=== PATIENT | female | born 1975 | race Caucasian/White ===

== ENCOUNTER → 2022-08-24 10:11 | Outpatient (CLI) | payer OTHER, MEDICAID, SELFPAY ==
--- NOTE | 2022-08-24 10:11 | DI.MG.S_ITS ---
BILATERAL DIGITAL SCREENING MAMMOGRAM 3D/2D WITH CAD: 08/24/2022 CLINICAL: Baseline exam. Routine screening. Family history of breast cancer. No prior exams were available for comparison. Both breasts are heterogeneously dense, which may obscure small masses (category c / 51-75% glandular tissue). Current study was also evaluated with a Computer Aided Detection (CAD) system. There are grouped heterogeneous calcifications in the right breast at 12 o'clock posterior depth. No other significant masses, calcifications, or other findings are seen in either breast. IMPRESSION: INCOMPLETE: NEEDS ADDITIONAL IMAGING EVALUATION The grouped heterogeneous calcifications in the right breast are indeterminate. Diagnostic mammogram for additional views to include mediolateral and spot magnification views is recommended. This exam was interpreted at Station ID: [id number]. NOTE: For mammograms, a report in lay terms will be sent to the patient. Approximately 15% of breast malignancies will not be visualized mammographically. In the management of a palpable breast mass, a negative mammogram must not discourage biopsy of a clinically suspicious lesion. Electronically Signed By: Nilo Portillo M.D. at/:08/24/2022 18:50:11 letter sent: Additional Imaging Needed ACR BI-RADS Category 0: Incomplete 3340F
--- NOTE | 2022-08-24 10:11 | DI.US.S_ITS ---
PROCEDURE: US PELVIC COMPLETE INDICATIONS: PAIN TECHNIQUE: Real-time scanning was performed of the pelvic organs, with image documentation. Additional endovaginal scanning was necessary due to incomplete visualization of the adnexal and endometrial structures by transabdominal scanning. COMPARISON: None. FINDINGS: Uterus: 8.1 x 3.5 x 5.3 cm. Endometrium measures 2 mm. Ovaries: Right ovary measures 4.3 x 3.6 x 2.9 cm, for a volume of 24 cc. A complex cyst measures 3.1 x 2.8 x 2.5 cm. Left ovary is not well seen. Color and spectral flows are documented in the right ovary. Other: No pathologic free fluid. IMPRESSION: A complex cystic lesion is seen in the right ovary measuring up to 3.1 cm, with imaging appearance suggestive of hemorrhagic cyst. Consider follow-up imaging in 6-8 weeks given patient is symptomatic to ensure this resolves. Cystic neoplasm or endometrioma is considered less likely. Reimaging could be obtained sooner if symptoms worsen. We strive to produce accurate, complete, and clear reports of imaging services. To assist us in improving patient care, this report was composed using standard report templates and voice recognition software. Therefore, it may contain abnormal punctuation, insertions and/or omissions. Occasional wrong-word or sound-alike substitutions may occur. Though we review the report and make efforts to correct it, we do recommend that the report be read carefully in proper context to recognize any text inaccuracies. Dictated by: Levar Ackerman M.D. on 08/24/2022 at 12:20 Approved by: Levar Ackerman M.D. on 08/24/2022 at 12:23
== END ==
PROVIDERS: PCP Nurse Practitioner Family; Referring Provider Physician Assistant Medical; Visit Provider Physician Assistant Medical
DX: Z12.31 Encounter for screening mammogram for malignant neoplasm of breast (principal); R10.2 Pelvic and perineal pain; Z80.3 Family history of malignant neoplasm of breast; N83.291 Other ovarian cyst, right side
CPT/HCPCS: 76830; 76856; 77063; 77067; 93976

== ENCOUNTER → 2022-10-11 09:32 | Outpatient (CLI) | payer OTHER, MEDICAID, SELFPAY ==
--- NOTE | 2022-10-11 | DI.MG.S_ITS ---
UNILATERAL RIGHT DIGITAL DIAGNOSTIC MAMMOGRAM 3D/2D WITH ADDITIONAL VIEWS: 10/11/2022 CLINICAL: Additional evaluation requested from prior study. Comparison is made to exam dated: 08/24/2022 mammogram - [facility]. The right breast is heterogeneously dense, which may obscure small masses (category c / 51-75% glandular tissue). There are grouped coarse heterogeneous calcifications in the right breast at 12 o'clock posterior depth. No other significant masses or calcifications are seen in the breast. IMPRESSION: SUSPICIOUS OF MALIGNANCY The grouped coarse heterogeneous calcifications in the right breast are at a low suspicion for malignancy. Tomographic-guided biopsy is recommended. This exam was interpreted at Station ID: [id number]. NOTE: For mammograms, a report in lay terms will be sent to the patient. Approximately 15% of breast malignancies will not be visualized mammographically. In the management of a palpable breast mass, a negative mammogram must not discourage biopsy of a clinically suspicious lesion. Electronically Signed By: Levar Ackerman M.D. lc/:10/11/2022 10:12:42 letter sent: Biopsy Required ACR BI-RADS Category 4a: Suspicious abnormality - low suspicion for malignancy 3344F
--- NOTE | 2022-10-11 | DI.US.S_ITS ---
PROCEDURE: US PELVIC COMPLETE INDICATIONS: ovarian cyst, right side TECHNIQUE: Real-time scanning was performed of the pelvic organs, with image documentation. Additional endovaginal scanning was necessary due to incomplete visualization of the adnexal and endometrial structures by transabdominal scanning. COMPARISON: [facility], US, US PELVIC COMPLETE, 08/24/2022, 10:24. FINDINGS: Uterus: Uterus is anteverted and normal in size at 8.5 x 3.0 x 5.1 cm. The myometrium is homogeneous. The endometrium measures 1.6 mm combined thickness. Ovaries: The right ovary measures 2.9 x 1.1 x 1.3 cm, with a calculated ovarian volume of 2.2 cc. The left ovary measures 2.8 x 1.8 x 2.3 cm, with a calculated ovarian volume of 6.0 cc. The ovaries have a normal sonographic appearance. Less than 12 follicles can be seen in each ovary. No adnexal masses are seen. There is a small right follicular cyst and a left corpus luteal cyst. Other: No pathologic free abdominal or pelvic fluid. IMPRESSION: Previously visualized right ovarian cyst has resolved and likely represented a hemorrhagic cyst. Otherwise unremarkable pelvic ultrasound. We strive to produce accurate, complete, and clear reports of imaging services. To assist us in improving patient care, this report was composed using standard report templates and voice recognition software. Therefore, it may contain abnormal punctuation, insertions and/or omissions. Occasional wrong-word or sound-alike substitutions may occur. Though we review the report and make efforts to correct it, we do recommend that the report be read carefully in proper context to recognize any text inaccuracies. Dictated by: Khushboo Workman M.D. on 10/11/2022 at 12:27 Approved by: Khushboo Workman M.D. on 10/11/2022 at 12:29
== END ==
PROVIDERS: Family Provider Nurse Practitioner Family; PCP Nurse Practitioner Family; Referring Provider Physician Assistant Medical; Visit Provider Physician Assistant Medical
DX: N83.01 Follicular cyst of right ovary (principal); R92.8 Other abnormal and inconclusive findings on diagnostic imaging of breast; R92.1 Mammographic calcification found on diagnostic imaging of breast; N83.12 Corpus luteum cyst of left ovary
CPT/HCPCS: 76856; 77065; G0279

== ENCOUNTER 2023-01-06 13:30 | Outpatient (RCR) | payer OTHER, MEDICAID, SELFPAY ==
--- NOTE | 2022-11-02 17:18 | PT.OIE ---
Current Diagnoses Sprain of anterior cruciate ligament of right knee, subsequent encounter (11/02/22) Past Medical History (Last Updated 06/03/22 @ 18:58 by Jossy Reaves) Abnormal Pap smear of cervix (~1998) Chicken pox (~1983) Chronic back pain (~1997) Foot pain (~1991) Irregular menstrual cycle Peripheral neuropathy (~2013) Precancerous skin lesion (~1999) Past Surgical History (Last Updated 06/03/22 @ 18:58 by Jossy Reaves) Anesthesia Surgical procedure planned (~2017) Visit Care Team Role Provider Type SKIP Dubon Attending Provider Non-Staff Family Provider Primary Care Provider Referring Provider Specialty: Medical Address: [address] [place] [address], [facility] Email: Physical Therapy Initial Evaluation PT-OP-A Visit Information Start: 11/01/22 18:02 Freq: Status: Active Protocol: Document 11/02/22 15:19 [facility] (Rec: 11/02/22 16:31 [facility] [id number]) Out-Patient Physical Therapy Visit Information Visit Information Visit Type Initial Evaluation Visit Start Time 15:22 Visit Stop Time 16:20 Total Visit Minutes 58 Visit Number 1 Number of MEDICAL STAFF DIRECTOR Visits 0 PT-OP-B Current Condition Start: 11/01/22 18:02 Freq: Status: Active Protocol: Document 11/02/22 15:19 [facility] (Rec: 11/02/22 16:31 [facility] [id number]) Current Condition History of Current Condition History of Current Condition Pt had a skiing accdient and heard a snap in her knee. Her ski didn't pop off. This was Sep 08. Pt does a lot of modern dance. She was seeing PT for 3 weeks on [place] but is staying on [place] until Mar. Ortho MD did suggest surgery but she has a lot of manual labor like dismantle a garage and paint a house. Her house on [place] is uneven ground everywhere and that is difficult. Pt has a dance performance on December 04. She idd perform about 1 month ago and improvised. She is avoiding leaping and spins. 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 Pt reports knee is not giving out on her recently but has done it on uneven ground. its been 1.5 months ago. She is careful how she moves though. Pt reports tearing R HS as a teen . Prior Treatments and Tests Got a MRI a few weeks ago saying:R knee near complete ruputre of ACL, Grade 2 MCL sprain, lat meniscal post horn tear, multifocal bone bruising and post rim impaction fx of the lat plateau, patellofemoral chrondromalacia, small knee effusion or hemarthrosis. Treatment Goals Patient/Caregiver Goals Be dancing more, be able to bend her knee & have ext, be able to be on unstable surfaces PT-OP-F Manual Assessment Start: 11/01/22 18:02 Freq: Status: Active Protocol: Document 11/02/22 15:19 [facility] (Rec: 11/02/22 16:31 [facility] [id number]) Manual Assessments Soft Tissue Assessment Soft Tissue Mobility Assessment significant tightness and restriction in HS, quad adn at patellar tendon; swelling most notable most knee Joint Mobility Assessment Joint Mobility Assessment dec fib mobility PT-OP-G Mobility & Gait Start: 11/01/22 18:02 Freq: Status: Active Protocol: Document 11/02/22 15:19 [facility] (Rec: 11/02/22 16:31 [facility] [id number]) OP Gait Assessment Comments Gait Comments dec push off into RLE. PT-OP-K Range of Motion Start: 11/01/22 18:02 Freq: Status: Active Protocol: Document 11/02/22 15:19 [facility] (Rec: 11/02/22 16:31 [facility] [id number]) Knee Goniometric Range of Motion Knee Right Flexion Active (degrees) 77 Extension Active (degrees) 5 Comments lacking to neutral in ext; pain w/flex Left Flexion Active (degrees) 138 Hyper-Extension Active 4 PT-OP-L Special Tests Start: 11/01/22 18:02 Freq: Status: Active Protocol: Document 11/02/22 15:19 [facility] (Rec: 11/02/22 16:31 [facility] [id number]) Special Tests Knee Special Tests Straight Leg Raise Comments L 104 R 95 Km Test Results quad tightness R PT-OP-M Strength Start: 11/01/22 18:02 Freq: Status: Active Protocol: Document 11/02/22 15:19 [facility] (Rec: 11/02/22 16:31 [facility] [id number]) Hip Strength Hip Manual Muscle Testing Right Flexion (L2) 4- Good- Extension (S1) 5 Normal Abduction 4 Good Adduction 4+ Good+ External Rotation 3+ Fair+ Internal Rotation 4- Good- Left Flexion (L2) 5 Normal Extension (S1) 5 Normal Abduction 5 Normal Adduction 5 Normal External Rotation 5 Normal Internal Rotation 5 Normal Knee Strength Knee Manual Muscle Testing Right Flexion (S2) 4- Good- Extension (L3) 4 Good Left Flexion (S2) 5 Normal Extension (L3) 5 Normal Ankle/Foot Strength Ankle and Foot Manual Muscle Testing Right Dorsiflexion (L4) 5 Normal Left Dorsiflexion (L4) 5 Normal PT-OP-T Assessment and Plan Start: 11/01/22 18:02 Freq: Status: Active Protocol: Document 11/02/22 15:19 [facility] (Rec: 11/02/22 16:31 [facility] [id number]) Physical Therapy Assessment Rehab Potential Rehabilitation Potential Good Evaluation Complexity Number of Personal Factors/Comorbidities 3 or More Number of Body Systems Impaired 4 or More Clinical Presentation at Evaluation Evolving Impairments Impairments Activity Tolerance,Balance, Functional Activities, Functional Mobility,Gait,Pain, Posture,ROM,Soft Tissue Mobility,Strength Other Concerns Barriers to Rehabilitation pt has limit of only 12 visits per year w/insurance and pt is likely to get surgery. Pt would benefit from 2x/week but will have to be seen 1x/week or every other week d/t restriction of visits and that pt will require further PT after recommended (by Orthopedic) surgery Goals activities Short Term Goal (STG) Pt will be able to return to biking (on stationary bike- full range), ellipical full range and walks w/o inc pain in order to improve pt strength and stabiltiy. STG Duration 12/02/22 Tumor Registrar Goal (LTG) Pt will be able to squat down to the ground as need to picking supervisor objects and ffor movement requried of dance w/o inc pain LTG Duration 01/21/23 stairs Care Home Goal (LTG) pt will be able to reciprocate up/down stairs w/o compensations or R knee pain LTG Duration 01/25/23 ROm Short Term Goal (STG) Pt will improve ROM to 0-100 deg STG Duration 12/13/22 Care Home Goal (LTG) Pt will have 0-120 deg AROM of R knee and at least 104 SLR active in order to improve pt ability to do stairs, and activities required of dancing LTG Duration 01/25/23 Assessment Summary Assessment Pt presents w/R knee near complete ruputre of ACL, Grade 2 MCL sprain, lat meniscal post horn tear, multifocal bone bruising and post rim impaction fx of the lat plateau, patellofemoral chrondromalacia, small knee effusion or hemarthrosis (per MRI report). Pt has signficantly limited ROM and is unable to bend knee or fully straighten d/t pain and signficant quad weakness w/dec VMO engagment. She was recommended surgery by ortho who only mentioned the ACL tear and sprain of MCL but is unable to get it immediately d /t some activities she has to complete on her house and boyfriend's house in a timely manner. She would benefit from gaining strength and ROM prior to surgery and improve overall stability at this time . Physical Therapy Plan Frequency and Duration Frequency of Treatment 1x/Week Duration of treatment (weeks) 12 Plan of Care Start Date 11/02/22 Plan of Care End Date 01/25/23 Therapeutic Interventions Therapeutic Interventions Balance Training,Gait Training ,Home Exercise Program,Joint Mobilizations,Manual Therapy, Neuromuscular Re-education, Patient/Caregiver Education, Self-Care/Home Management,Soft Tissue Mobilization,Taping, Therapeutic Activities, Therapeutic Exercises Modalities Cold Pack/Ice Massage,Electric Stimulation,Hot Packs, Infrared Therapy,Iontophoresis ,Ultrasound Next Visit Focus/Plan Next Note Type Treatment Note Next Visit Plan ask if pt has any questions re : HEP, Advance exercises as able. Manual: circumfrential mobilization to femur and tibia, tibfib, tibfem mods very gentle, Patellofemoral mobs, STM to patellar tendon, plunger to ant knee
--- NOTE | 2022-11-02 17:18 | PT.OPPOC ---
Physical, Occupational & Speech Therapy At [facility] Current Diagnoses Sprain of anterior cruciate ligament of right knee, subsequent encounter (11/02/22) Visit Care Team Role Provider Type SKIP Dubon Attending Provider Non-Staff Family Provider Primary Care Provider Referring Provider Specialty: Medical Address: [address] [place] [address], [id number] Email: Plan Of Care PT-OP-T Assessment and Plan Start: 11/01/22 18:02 Freq: Status: Active Protocol: Document 11/02/22 15:19 [facility] (Rec: 11/02/22 16:31 [facility] [id number]) Physical Therapy Assessment Rehab Potential Rehabilitation Potential Good Evaluation Complexity Number of Personal Factors/Comorbidities 3 or More Number of Body Systems Impaired 4 or More Clinical Presentation at Evaluation Evolving Impairments Impairments Activity Tolerance,Balance, Functional Activities, Functional Mobility,Gait,Pain, Posture,ROM,Soft Tissue Mobility,Strength Other Concerns Barriers to Rehabilitation pt has limit of only 12 visits per year w/insurance and pt is likely to get surgery. Pt would benefit from 2x/week but will have to be seen 1x/week or every other week d/t restriction of visits and that pt will require further PT after recommended (by Orthopedic) surgery Goals activities Short Term Goal (STG) Pt will be able to return to biking (on stationary bike- full range), ellipical full range and walks w/o inc pain in order to improve pt strength and stabiltiy. STG Duration 12/02/22 Electrostatic Painter Goal (LTG) Pt will be able to squat down to the ground as need to hand picker objects and ffor movement requried of dance w/o inc pain LTG Duration 01/21/23 stairs Electrostatic Painter Goal (LTG) pt will be able to reciprocate up/down stairs w/o compensations or R knee pain LTG Duration 01/25/23 ROm Short Term Goal (STG) Pt will improve ROM to 0-100 deg STG Duration 12/13/22 Long-Term Goal (LTG) Pt will have 0-120 deg AROM of R knee and at least 104 SLR active in order to improve pt ability to do stairs, and activities required of dancing LTG Duration 01/25/23 Assessment Summary Assessment Pt presents w/R knee near complete ruputre of ACL, Grade 2 MCL sprain, lat meniscal post horn tear, multifocal bone bruising and post rim impaction fx of the lat plateau, patellofemoral chrondromalacia, small knee effusion or hemarthrosis (per MRI report). Pt has signficantly limited ROM and is unable to bend knee or fully straighten d/t pain and signficant quad weakness w/dec VMO engagment. She was recommended surgery by ortho who only mentioned the ACL tear and sprain of MCL but is unable to get it immediately d /t some activities she has to complete on her house and boyfriend's house in a timely manner. She would benefit from gaining strength and ROM prior to surgery and improve overall stability at this time . Physical Therapy Plan Frequency and Duration Frequency of Treatment 1x/Week Duration of treatment (weeks) 12 Plan of Care Start Date 11/02/22 Plan of Care End Date 01/25/23 Therapeutic Interventions Therapeutic Interventions Balance Training,Gait Training ,Home Exercise Program,Joint Mobilizations,Manual Therapy, Neuromuscular Re-education, Patient/Caregiver Education, Self-Care/Home Management,Soft Tissue Mobilization,Taping, Therapeutic Activities, Therapeutic Exercises Modalities Cold Pack/Ice Massage,Electric Stimulation,Hot Packs, Infrared Therapy,Iontophoresis ,Ultrasound Next Visit Focus/Plan Next Note Type Treatment Note Next Visit Plan ask if pt has any questions re : HEP, Advance exercises as able. Manual: circumfrential mobilization to femur and tibia, tibfib, tibfem mods very gentle, Patellofemoral mobs, STM to patellar tendon, plunger to ant knee Plan of Care Dates Plan of Care Start Date 11/02/22 Plan of Care End Date 01/25/23 Electronically Signed by: Stephanie Noel, PT 11/02/22 2355 If you are in agreement with this Plan of Care, please return a signed and dated copy. I have reviewed this Plan of Care and certify that the skilled therapy services above are required to meet the patient?s needs. Physician Signature Date Printed Name and Credentials Clinical Instructor Signature Printed Name and Credentials
--- NOTE | 2022-11-02 18:18 | PT.OIE ---
Current Diagnoses Sprain of anterior cruciate ligament of right knee, subsequent encounter (11/02/22) Past Medical History (Last Updated 06/03/22 @ 18:58 by Jossy Reaves) Abnormal Pap smear of cervix (~1998) Chicken pox (~1983) Chronic back pain (~1997) Foot pain (~1991) Irregular menstrual cycle Peripheral neuropathy (~2013) Precancerous skin lesion (~1999) Past Surgical History (Last Updated 06/03/22 @ 18:58 by Jossy Reaves) Anesthesia Surgical procedure planned (~2017) Visit Care Team Role Provider Type SKIP [place] Attending Provider Non-Staff Family Provider Primary Care Provider Referring Provider Specialty: Medical Address: [address] [place] [address], [facility] Email: Physical Therapy Initial Evaluation PT-OP-A Visit Information Start: 11/01/22 18:02 Freq: Status: Active Protocol: Document 11/02/22 15:19 [facility] (Rec: 11/02/22 16:31 [facility] [id number]) Out-Patient Physical Therapy Visit Information Visit Information Visit Type Initial Evaluation Visit Start Time 15:22 Visit Stop Time 16:20 Total Visit Minutes 58 Visit Number 1 Number of GAME BREEDING FARM MANAGER Visits 0 PT-OP-B Current Condition Start: 11/01/22 18:02 Freq: Status: Active Protocol: Document 11/02/22 15:19 [facility] (Rec: 11/02/22 16:31 [facility] [id number]) Current Condition History of Current Condition History of Current Condition Pt had a skiing accdient and heard a snap in her knee. Her ski didn't pop off. This was Sep 08. Pt does a lot of modern dance. She was seeing PT for 3 weeks on [place] but is staying on [place] until Mar. Ortho MD did suggest surgery but she has a lot of manual labor like dismantle a garage and paint a house. Her house on [place] is uneven ground everywhere and that is difficult. Pt has a dance performance on December 04. She idd perform about 1 month ago and improvised. She is avoiding leaping and spins. 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 Pt reports knee is not giving out on her recently but has done it on uneven ground. its been 1.5 months ago. She is careful how she moves though. Pt reports tearing R HS as a teen . Prior Treatments and Tests Got a MRI a few weeks ago saying:R knee near complete ruputre of ACL, Grade 2 MCL sprain, lat meniscal post horn tear, multifocal bone bruising and post rim impaction fx of the lat plateau, patellofemoral chrondromalacia, small knee effusion or hemarthrosis. Treatment Goals Patient/Caregiver Goals Be dancing more, be able to bend her knee & have ext, be able to be on unstable surfaces PT-OP-C Subjective Start: 11/01/22 18:02 Freq: Status: Active Protocol: Document 11/02/22 15:19 [facility] (Rec: 11/02/22 18:18 [facility] [id number]) Patient Questionnaires Lower Extremity Functional Scale LEFS Score 45/80 PT-OP-F Manual Assessment Start: 11/01/22 18:02 Freq: Status: Active Protocol: Document 11/02/22 15:19 [facility] (Rec: 11/02/22 16:31 [facility] [id number]) Manual Assessments Soft Tissue Assessment Soft Tissue Mobility Assessment significant tightness and restriction in HS, quad adn at patellar tendon; swelling most notable most knee Joint Mobility Assessment Joint Mobility Assessment dec fib mobility PT-OP-G Mobility & Gait Start: 11/01/22 18:02 Freq: Status: Active Protocol: Document 11/02/22 15:19 [facility] (Rec: 11/02/22 16:31 [facility] [id number]) OP Gait Assessment Comments Gait Comments dec push off into RLE. PT-OP-K Range of Motion Start: 11/01/22 18:02 Freq: Status: Active Protocol: Document 11/02/22 15:19 [facility] (Rec: 11/02/22 16:31 [facility] [id number]) Knee Goniometric Range of Motion Knee Right Flexion Active (degrees) 77 Extension Active (degrees) 5 Comments lacking to neutral in ext; pain w/flex Left Flexion Active (degrees) 138 Hyper-Extension Active 4 PT-OP-L Special Tests Start: 11/01/22 18:02 Freq: Status: Active Protocol: Document 11/02/22 15:19 [facility] (Rec: 11/02/22 16:31 [facility] [id number]) Special Tests Knee Special Tests Straight Leg Raise Comments L 104 R 95 Km Test Results quad tightness R PT-OP-M Strength Start: 11/01/22 18:02 Freq: Status: Active Protocol: Document 11/02/22 15:19 [facility] (Rec: 11/02/22 16:31 [facility] [id number]) Hip Strength Hip Manual Muscle Testing Right Flexion (L2) 4- Good- Extension (S1) 5 Normal Abduction 4 Good Adduction 4+ Good+ External Rotation 3+ Fair+ Internal Rotation 4- Good- Left Flexion (L2) 5 Normal Extension (S1) 5 Normal Abduction 5 Normal Adduction 5 Normal External Rotation 5 Normal Internal Rotation 5 Normal Knee Strength Knee Manual Muscle Testing Right Flexion (S2) 4- Good- Extension (L3) 4 Good Left Flexion (S2) 5 Normal Extension (L3) 5 Normal Ankle/Foot Strength Ankle and Foot Manual Muscle Testing Right Dorsiflexion (L4) 5 Normal Left Dorsiflexion (L4) 5 Normal PT-OP-Q Treatments Start: 11/01/22 18:02 Freq: Status: Active Protocol: Document 11/02/22 15:19 [facility] (Rec: 11/02/22 17:20 [facility] [id number]) Therapeutic Exercises Supine Exercises stretch Supine Exercise Name km test Side right Reps/Minutes 1 min heel slide Side right Reps/Minutes 2x w/5 APs ea Comments comfortable range Sitting Exercises LAQ Sitting Exercise Name w/facilitation w/pressure med to VMO Side right Reps/Minutes [id number] flex Sitting Exercise Name flex w/fwd scoot Side right Reps/Minutes 10 secx6 PT-OP-T Assessment and Plan Start: 11/01/22 18:02 Freq: Status: Active Protocol: Document 11/02/22 15:19 [facility] (Rec: 11/02/22 16:31 [facility] [id number]) Physical Therapy Assessment Rehab Potential Rehabilitation Potential Good Evaluation Complexity Number of Personal Factors/Comorbidities 3 or More Number of Body Systems Impaired 4 or More Clinical Presentation at Evaluation Evolving Impairments Impairments Activity Tolerance,Balance, Functional Activities, Functional Mobility,Gait,Pain, Posture,ROM,Soft Tissue Mobility,Strength Other Concerns Barriers to Rehabilitation pt has limit of only 12 visits per year w/insurance and pt is likely to get surgery. Pt would benefit from 2x/week but will have to be seen 1x/week or every other week d/t restriction of visits and that pt will require further PT after recommended (by Orthopedic) surgery Goals activities Short Term Goal (STG) Pt will be able to return to biking (on stationary bike- full range), ellipical full range and walks w/o inc pain in order to improve pt strength and stabiltiy. STG Duration 12/02/22 Shelter Goal (LTG) Pt will be able to squat down to the ground as need to pickling solution maker objects and ffor movement requried of dance w/o inc pain LTG Duration 01/21/23 stairs Shelter Goal (LTG) pt will be able to reciprocate up/down stairs w/o compensations or R knee pain LTG Duration 01/25/23 ROm Short Term Goal (STG) Pt will improve ROM to 0-100 deg STG Duration 12/13/22 Solar Energy Specialist Goal (LTG) Pt will have 0-120 deg AROM of R knee and at least 104 SLR active in order to improve pt ability to do stairs, and activities required of dancing LTG Duration 01/25/23 Assessment Summary Assessment Pt presents w/R knee near complete ruputre of ACL, Grade 2 MCL sprain, lat meniscal post horn tear, multifocal bone bruising and post rim impaction fx of the lat plateau, patellofemoral chrondromalacia, small knee effusion or hemarthrosis (per MRI report). Pt has signficantly limited ROM and is unable to bend knee or fully straighten d/t pain and signficant quad weakness w/dec VMO engagment. She was recommended surgery by ortho who only mentioned the ACL tear and sprain of MCL but is unable to get it immediately d /t some activities she has to complete on her house and boyfriend's house in a timely manner. She would benefit from gaining strength and ROM prior to surgery and improve overall stability at this time . Physical Therapy Plan Frequency and Duration Frequency of Treatment 1x/Week Duration of treatment (weeks) 12 Plan of Care Start Date 11/02/22 Plan of Care End Date 01/25/23 Therapeutic Interventions Therapeutic Interventions Balance Training,Gait Training ,Home Exercise Program,Joint Mobilizations,Manual Therapy, Neuromuscular Re-education, Patient/Caregiver Education, Self-Care/Home Management,Soft Tissue Mobilization,Taping, Therapeutic Activities, Therapeutic Exercises Modalities Cold Pack/Ice Massage,Electric Stimulation,Hot Packs, Infrared Therapy,Iontophoresis ,Ultrasound Next Visit Focus/Plan Next Note Type Treatment Note Next Visit Plan ask if pt has any questions re : HEP, Advance exercises as able. Manual: circumfrential mobilization to femur and tibia, tibfib, tibfem mods very gentle, Patellofemoral mobs, STM to patellar tendon, plunger to ant knee
--- NOTE | 2022-11-15 10:30 | PT.OTN ---
Current Diagnoses Sprain of anterior cruciate ligament of right knee, subsequent encounter (11/15/22) Physical Therapy Treatment Note PT-OP-A Visit Information Start: 11/01/22 18:02 Freq: Status: Active Protocol: Document 11/15/22 09:50 [facility] (Rec: 11/15/22 10:37 [facility] [id number]) Out-Patient Physical Therapy Visit Information Visit Information Visit Type Treatment Note Visit Note GAVIN Cerna provided manual assist and supported instruction on self application at home while under direct supervision and instruction of SORTER LUMBER STRAIGHTENER Rolando with permission of pt. Visit Start Time 09:50 Visit Stop Time 10:30 Total Visit Minutes 40 Visit Number 2 Number of SORTER LUMBER STRAIGHTENER Visits 1 PT-OP-B Current Condition Start: 11/01/22 18:02 Freq: Status: Active Protocol: Document 11/02/22 15:19 [facility] (Rec: 11/02/22 16:31 [facility] [id number]) Current Condition History of Current Condition History of Current Condition Pt had a skiing accdient and heard a snap in her knee. Her ski didn't pop off. This was Sep 08. Pt does a lot of modern dance. She was seeing PT for 3 weeks on [address] but is staying on [place] until Mar. Ortho MD did suggest surgery but she has a lot of manual labor like dismantle a garage and paint a house. Her house [place] [address] is uneven ground everywhere and that is difficult. Pt has a dance performance on December 04. She idd perform about 1 month ago and improvised. She is avoiding leaping and spins. 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 Pt reports knee is not giving out on her recently but has done it on uneven ground. its been 1.5 months ago. She is careful how she moves though. Pt reports tearing R HS as a teen . Prior Treatments and Tests Got a MRI a few weeks ago saying:R knee near complete ruputre of ACL, Grade 2 MCL sprain, lat meniscal post horn tear, multifocal bone bruising and post rim impaction fx of the lat plateau, patellofemoral chrondromalacia, small knee effusion or hemarthrosis. Treatment Goals Patient/Caregiver Goals Be dancing more, be able to bend her knee & have ext, be able to be on unstable surfaces PT-OP-C Subjective Start: 11/01/22 18:02 Freq: Status: Active Protocol: Document 11/15/22 09:50 [facility] (Rec: 11/15/22 10:37 [facility] [id number]) OP-PT Subjective Patient Comments Patient Comments Pt reports has been on vacation and tried to be compliant with HEP given in previous PT on [facility]. PT-OP-F Manual Assessment Start: 11/01/22 18:02 Freq: Status: Active Protocol: Document 11/02/22 15:19 [facility] (Rec: 11/02/22 16:31 [facility] [id number]) Manual Assessments Soft Tissue Assessment Soft Tissue Mobility Assessment significant tightness and restriction in HS, quad adn at patellar tendon; swelling most notable most knee Joint Mobility Assessment Joint Mobility Assessment dec fib mobility PT-OP-G Mobility & Gait Start: 11/01/22 18:02 Freq: Status: Active Protocol: Document 11/02/22 15:19 [facility] (Rec: 11/02/22 16:31 [facility] [id number]) OP Gait Assessment Comments Gait Comments dec push off into RLE. PT-OP-K Range of Motion Start: 11/01/22 18:02 Freq: Status: Active Protocol: Document 11/02/22 15:19 [facility] (Rec: 11/02/22 16:31 [facility] [id number]) Knee Goniometric Range of Motion Knee Right Flexion Active (degrees) 77 Extension Active (degrees) 5 Comments lacking to neutral in ext; pain w/flex Left Flexion Active (degrees) 138 Hyper-Extension Active 4 PT-OP-L Special Tests Start: 11/01/22 18:02 Freq: Status: Active Protocol: Document 11/02/22 15:19 [facility] (Rec: 11/02/22 16:31 [facility] [id number]) Special Tests Knee Special Tests Straight Leg Raise Comments L 104 R 95 Km Test Results quad tightness R PT-OP-M Strength Start: 11/01/22 18:02 Freq: Status: Active Protocol: Document 11/02/22 15:19 [facility] (Rec: 11/02/22 16:31 [facility] [id number]) Hip Strength Hip Manual Muscle Testing Right Flexion (L2) 4- Good- Extension (S1) 5 Normal Abduction 4 Good Adduction 4+ Good+ External Rotation 3+ Fair+ Internal Rotation 4- Good- Left Flexion (L2) 5 Normal Extension (S1) 5 Normal Abduction 5 Normal Adduction 5 Normal External Rotation 5 Normal Internal Rotation 5 Normal Knee Strength Knee Manual Muscle Testing Right Flexion (S2) 4- Good- Extension (L3) 4 Good Left Flexion (S2) 5 Normal Extension (L3) 5 Normal Ankle/Foot Strength Ankle and Foot Manual Muscle Testing Right Dorsiflexion (L4) 5 Normal Left Dorsiflexion (L4) 5 Normal PT-OP-Q Treatments Start: 11/01/22 18:02 Freq: Status: Active Protocol: Document 11/15/22 09:50 [facility] (Rec: 11/15/22 10:37 [facility] [id number]) Therapeutic Exercises Supine Exercises stretch Supine Exercise Name km stretch Side right Reps/Minutes 4 Comments perpendicular to EO table, states does at gym due to bed to low heel slide Side right Resistance 55cm Tball w/ strap Reps/Minutes x5 reps sustained hold Comments improved ROM post manual Other Exercises self STMs Other Exercise Name rolling pin, ball: quad, ITB, calf, peroneals, Tib Anterior Side right Resistance manual and understanding how to apply self. Comments good feedback response, increase Manual Therapy Treatment Soft Tissue Mobilization R leg Body Location R quad, ITB, peroneals, Tib Anterior Mobilization Type Instrument Assisted,Myofascial Release,Rolling,Strumming, Sustained Pressure,Other Intensity/Depth Moderate Body Position Sidelying Comments manual and use of cupping, sustained pressure with FM ankle ROM Ed for self application Joint Mobilizations R knee Joint tibfib prox and distal, tib femoral, patellofemoral Direction AP, PA, circumferencial gentle med/ lateral rotation Grade II Body Position Hooklying Comments Good feedback response PT-OP-T Assessment and Plan Start: 11/01/22 18:02 Freq: Status: Active Protocol: Document 11/15/22 09:50 [facility] (Rec: 11/15/22 10:37 [facility] [id number]) Physical Therapy Assessment Goals activities Short Term Goal (STG) Pt will be able to return to biking (on stationary bike- full range), ellipical full range and walks w/o inc pain in order to improve pt strength and stabiltiy. STG Duration 12/02/22 Short Order Cook Goal (LTG) Pt will be able to squat down to the ground as need to picked edge sewing machine operator objects and ffor movement requried of dance w/o inc pain LTG Duration 01/21/23 stairs [facility] Goal (LTG) pt will be able to reciprocate up/down stairs w/o compensations or R knee pain LTG Duration 01/25/23 ROm Short Term Goal (STG) Pt will improve ROM to 0-100 deg STG Duration 12/13/22 [facility] Goal (LTG) Pt will have 0-120 deg AROM of R knee and at least 104 SLR active in order to improve pt ability to do stairs, and activities required of dancing LTG Duration 01/25/23 Assessment Summary Assessment Pt good response to manual, decreased anteromedial patellar tendon discomfort and more stretch B and into distal quad with LE supported on tball and use of yoga strap for AAROM Knee flexion. Physical Therapy Plan Frequency and Duration Frequency of Treatment 1x/Week Duration of treatment (weeks) 12 Plan of Care Start Date 11/02/22 Plan of Care End Date 01/25/23 Therapeutic Interventions Therapeutic Interventions Balance Training,Gait Training ,Home Exercise Program,Joint Mobilizations,Manual Therapy, Neuromuscular Re-education, Patient/Caregiver Education, Self-Care/Home Management,Soft Tissue Mobilization,Taping, Therapeutic Activities, Therapeutic Exercises Modalities Cold Pack/Ice Massage,Electric Stimulation,Hot Packs, Infrared Therapy,Iontophoresis ,Ultrasound Next Visit Focus/Plan Next Note Type Treatment Note Next Visit Plan REcheck ROM, use of manual and Tball supported and strap AAROM. POC: ask if pt has any questions re: HEP, Advance exercises as able. Manual: circumfrential mobilization to femur and tibia, tibfib, tibfem mods very gentle, Patellofemoral mobs, STM to patellar tendon, plunger to ant knee
--- NOTE | 2022-11-24 13:00 | PT.OTN ---
Current Diagnoses Sprain of anterior cruciate ligament of right knee, subsequent encounter (11/24/22) Physical Therapy Treatment Note PT-OP-A Visit Information Start: 11/01/22 18:02 Freq: Status: Active Protocol: Document 11/24/22 12:16 SP (Rec: 11/24/22 13:04 SP [id number]) Out-Patient Physical Therapy Visit Information Visit Information Visit Type Treatment Note Visit Note 01/10 (3 appts on [place]) visits allowed *Updated to 1x/wk in POC for extending time visits. Visit Start Time 12:16 Visit Stop Time 13:00 Total Visit Minutes 44 Visit Number 3 Number of SPORTS ADMINISTRATOR Visits 2 PT-OP-B Current Condition Start: 11/01/22 18:02 Freq: Status: Active Protocol: Document 11/02/22 15:19 [facility] (Rec: 11/02/22 16:31 [facility] [id number]) Current Condition History of Current Condition History of Current Condition Pt had a skiing accdient and heard a snap in her knee. Her ski didn't pop off. This was Sep 08. Pt does a lot of modern dance. She was seeing PT for 3 weeks on [place] but is staying on [place] until Mar. Ortho MD did suggest surgery but she has a lot of manual labor like dismantle a garage and paint a house. Her house [place] is uneven ground everywhere and that is difficult. Pt has a dance performance on December 04. She idd perform about 1 month ago and improvised. She is avoiding leaping and spins. 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 Pt reports knee is not giving out on her recently but has done it on uneven ground. its been 1.5 months ago. She is careful how she moves though. Pt reports tearing R HS as a teen . Prior Treatments and Tests Got a MRI a few weeks ago saying:R knee near complete ruputre of ACL, Grade 2 MCL sprain, lat meniscal post horn tear, multifocal bone bruising and post rim impaction fx of the lat plateau, patellofemoral chrondromalacia, small knee effusion or hemarthrosis. Treatment Goals Patient/Caregiver Goals Be dancing more, be able to bend her knee & have ext, be able to be on unstable surfaces PT-OP-C Subjective Start: 11/01/22 18:02 Freq: Status: Active Protocol: Document 11/24/22 12:16 SP (Rec: 11/24/22 13:04 SP [id number]) OP-PT Subjective Patient Comments Patient Comments Pt reported felt great and standing more vertical on RLE at gym. She made full revolutions on bike. Feels less stuck, moving more smoothly DF/PF/ knee flexion/ ext. Using rolling pin/ball for self manual mobililty support. REports Elliptical more normal and gait improving reported. PT-OP-F Manual Assessment Start: 11/01/22 18:02 Freq: Status: Active Protocol: Document 11/02/22 15:19 [facility] (Rec: 11/02/22 16:31 [facility] [id number]) Manual Assessments Soft Tissue Assessment Soft Tissue Mobility Assessment significant tightness and restriction in HS, quad adn at patellar tendon; swelling most notable most knee Joint Mobility Assessment Joint Mobility Assessment dec fib mobility PT-OP-G Mobility & Gait Start: 11/01/22 18:02 Freq: Status: Active Protocol: Document 11/02/22 15:19 [facility] (Rec: 11/02/22 16:31 [facility] [id number]) OP Gait Assessment Comments Gait Comments dec push off into RLE. PT-OP-K Range of Motion Start: 11/01/22 18:02 Freq: Status: Active Protocol: Document 11/24/22 12:16 SP (Rec: 11/24/22 13:04 SP [id number]) Knee Goniometric Range of Motion Knee Right Knee ROM WFL Yes Patient Position Supine Flexion Active (degrees) 110 Flexion Passive (degrees) 113 Extension Active (degrees) 2 Comments R knee AROM: flex: 33 deg gained (110*) ext: 3 deg gained (2*) PT-OP-L Special Tests Start: 11/01/22 18:02 Freq: Status: Active Protocol: Document 11/02/22 15:19 [facility] (Rec: 11/02/22 16:31 [facility] [id number]) Special Tests Knee Special Tests Straight Leg Raise Comments L 104 R 95 Km Test Results quad tightness R PT-OP-M Strength Start: 11/01/22 18:02 Freq: Status: Active Protocol: Document 11/02/22 15:19 [facility] (Rec: 11/02/22 16:31 [facility] [id number]) Hip Strength Hip Manual Muscle Testing Right Flexion (L2) 4- Good- Extension (S1) 5 Normal Abduction 4 Good Adduction 4+ Good+ External Rotation 3+ Fair+ Internal Rotation 4- Good- Left Flexion (L2) 5 Normal Extension (S1) 5 Normal Abduction 5 Normal Adduction 5 Normal External Rotation 5 Normal Internal Rotation 5 Normal Knee Strength Knee Manual Muscle Testing Right Flexion (S2) 4- Good- Extension (L3) 4 Good Left Flexion (S2) 5 Normal Extension (L3) 5 Normal Ankle/Foot Strength Ankle and Foot Manual Muscle Testing Right Dorsiflexion (L4) 5 Normal Left Dorsiflexion (L4) 5 Normal PT-OP-Q Treatments Start: 11/01/22 18:02 Freq: Status: Active Protocol: Document 11/24/22 12:16 SP (Rec: 11/24/22 13:04 SP [id number]) Therapeutic Exercises Supine Exercises stretch Supine Exercise Name km stretch Side right Reps/Minutes 30 Comments perpendicular to EO table, states does at gym due to bed to low Standing Exercises knee/ankle mobility Standing Exercise Name added improved knee flexion post manual pat tendon and Ktaping Comments with manual patellar tendon superior glides Other Exercises self STMs Other Exercise Name rolling pin, ball: quad, ITB, calf, peroneals, Tib Anterior Side right Resistance manual and understanding how to apply self. Comments good feedback response, increase Gait Training Gait Activity stairs Description receiprocal stepping Device Used 0 Level of Assistance S Distance/Duration 4 steps x3 laps Treatment Focus knee/ ankle alignment, R knee ROM and eccentric control Comments good con/eccentric reciprocal stepping, little deccrease stance time RLE no UE support required. Manual Therapy Treatment Soft Tissue Mobilization R leg Body Location R quad, ITB, peroneals, Tib Anterior Mobilization Type Instrument Assisted,Myofascial Release,Rolling,Strumming, Sustained Pressure,Other Intensity/Depth Moderate Body Position Sidelying Comments manual and use of cupping, sustained pressure with FM ankle ROM Ed for self application Joint Mobilizations R knee Joint tibfib prox and distal, tib femoral, patellofemoral Direction AP, PA, circumferencial gentle med/ lateral rotation Grade II Body Position Hooklying Comments Good feedback response Taping K taping Body Location R patella Treatment Focus pat stabilization Type of Tape Kinesio Tape Skin Inspection normal, color texture Comments C med/ lat patella: C tib pateau> distal mid quad. Good feedback more ease ROM post Man and ktaping. Neuro Re-Education Treatment Balance Activities hurdles Details initiated in PT for carryover mechanics knee flex/DF RLE Equipment 3 hurdles Comments slower pacing- improved R knee flexion, DF post manual and support Ktaping. PT-OP-T Assessment and Plan Start: 11/01/22 18:02 Freq: Status: Active Protocol: Document 11/24/22 12:16 SP (Rec: 11/24/22 13:04 SP [id number]) Physical Therapy Assessment Goals activities Short Term Goal (STG) Pt will be able to return to biking (on stationary bike- full range), ellipical full range and walks w/o inc pain in order to improve pt strength and stabiltiy. 11/24/22: almost met able perform full range but not fluid after last tx's Manual. Elliptical more normal and gait improving reported. 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 and ffor movement requried of dance w/o inc pain LTG Duration 01/21/23 stairs Senior Process Engineer Goal (LTG) pt will be able to reciprocate up/down stairs w/o compensations or R knee pain LTG Duration 01/25/23 ROm Short Term Goal (STG) Pt will improve ROM to 0-100 deg 11/24/22: STG Duration 12/13/22 Mcfp Goal (LTG) Pt will have 0-120 deg AROM of R knee and at least 104 SLR active in order to improve pt ability to do stairs, and activities required of dancing LTG Duration 01/25/23 Progress Towards Goals Progress Comments 11/24/22: R knee AROM: flex: 33 deg gained (110*) ext: 3 deg gained (2*) AAROM: 113 deg Assessment Summary Assessment Pt responded well to manual and good self application. Pt reporting good gains in ROM and functional R knee flexion carryover use bike at gym full revolutions and elliptical. See measurements. Physical Therapy Plan Frequency and Duration Frequency of Treatment 1x/Week Duration of treatment (weeks) 12 Plan of Care Start Date 11/02/22 Plan of Care End Date 01/25/23 Therapeutic Interventions Therapeutic Interventions Balance Training,Gait Training ,Home Exercise Program,Joint Mobilizations,Manual Therapy, Neuromuscular Re-education, Patient/Caregiver Education, Self-Care/Home Management,Soft Tissue Mobilization,Taping, Therapeutic Activities, Therapeutic Exercises Modalities Cold Pack/Ice Massage,Electric Stimulation,Hot Packs, Infrared Therapy,Iontophoresis ,Ultrasound Next Visit Focus/Plan Next Note Type Treatment Note Next Visit Plan REcheck AROM, manual, assess elliptical vs bike R knee flexion mechanics. POC: ask if pt has any questions re: HEP, Advance exercises as able. Manual: circumfrential mobilization to femur and tibia, tibfib, tibfem mods very gentle, Patellofemoral mobs, STM to patellar tendon, plunger to ant knee
--- NOTE | 2022-12-06 18:00 | PT.OTN ---
Current Diagnoses Sprain of anterior cruciate ligament of right knee, subsequent encounter (12/06/22) Physical Therapy Treatment Note PT-OP-A Visit Information Start: 11/01/22 18:02 Freq: Status: Active Protocol: Document 12/06/22 16:06 [facility] (Rec: 12/06/22 18:00 [facility] [id number]) Out-Patient Physical Therapy Visit Information Visit Information Visit Type Treatment Note Visit Start Time 16:07 Visit Stop Time 16:47 Total Visit Minutes 40 Visit Number 4 Number of PILOT CAPTAIN Visits 0 PT-OP-B Current Condition Start: 11/01/22 18:02 Freq: Status: Active Protocol: Document 11/02/22 15:19 [facility] (Rec: 11/02/22 16:31 [facility] [id number]) Current Condition History of Current Condition History of Current Condition Pt had a skiing accdient and heard a snap in her knee. Her ski didn't pop off. This was Sep 08. Pt does a lot of modern dance. She was seeing PT for 3 weeks on [place] but is staying on [place] until Mar. Ortho MD did suggest surgery but she has a lot of manual labor like dismantle a garage and paint a house. Her [place] is uneven ground everywhere and that is difficult. Pt has a dance performance on December 04. She idd perform about 1 month ago and improvised. She is avoiding leaping and spins. 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 Pt reports knee is not giving out on her recently but has done it on uneven ground. its been 1.5 months ago. She is careful how she moves though. Pt reports tearing R HS as a teen . Prior Treatments and Tests Got a MRI a few weeks ago saying:R knee near complete ruputre of ACL, Grade 2 MCL sprain, lat meniscal post horn tear, multifocal bone bruising and post rim impaction fx of the lat plateau, patellofemoral chrondromalacia, small knee effusion or hemarthrosis. Treatment Goals Patient/Caregiver Goals Be dancing more, be able to bend her knee & have ext, be able to be on unstable surfaces PT-OP-C Subjective Start: 11/01/22 18:02 Freq: Status: Active Protocol: Document 12/06/22 16:06 [facility] (Rec: 12/06/22 18:00 [facility] [id number]) OP-PT Subjective Patient Comments Patient Comments Pt reports she was dancing for wrok this past weekend and did some pilates. She reeally like the pilates. She feels ready to be done w/clamshells etc PT-OP-F Manual Assessment Start: 11/01/22 18:02 Freq: Status: Active Protocol: Document 11/02/22 15:19 [facility] (Rec: 11/02/22 16:31 [facility] [id number]) Manual Assessments Soft Tissue Assessment Soft Tissue Mobility Assessment significant tightness and restriction in HS, quad adn at patellar tendon; swelling most notable most knee Joint Mobility Assessment Joint Mobility Assessment dec fib mobility PT-OP-G Mobility & Gait Start: 11/01/22 18:02 Freq: Status: Active Protocol: Document 11/02/22 15:19 [facility] (Rec: 11/02/22 16:31 [facility] [id number]) OP Gait Assessment Comments Gait Comments dec push off into RLE. PT-OP-K Range of Motion Start: 11/01/22 18:02 Freq: Status: Active Protocol: Document 11/24/22 12:16 SP (Rec: 11/24/22 13:04 SP [id number]) Knee Goniometric Range of Motion Knee Right Knee ROM WFL Yes Patient Position Supine Flexion Active (degrees) 110 Flexion Passive (degrees) 113 Extension Active (degrees) 2 Comments R knee AROM: flex: 33 deg gained (110*) ext: 3 deg gained (2*) PT-OP-L Special Tests Start: 11/01/22 18:02 Freq: Status: Active Protocol: Document 11/02/22 15:19 [facility] (Rec: 11/02/22 16:31 [facility] [id number]) Special Tests Knee Special Tests Straight Leg Raise Comments L 104 R 95 Km Test Results quad tightness R PT-OP-M Strength Start: 11/01/22 18:02 Freq: Status: Active Protocol: Document 11/02/22 15:19 [facility] (Rec: 11/02/22 16:31 [facility] [id number]) Hip Strength Hip Manual Muscle Testing Right Flexion (L2) 4- Good- Extension (S1) 5 Normal Abduction 4 Good Adduction 4+ Good+ External Rotation 3+ Fair+ Internal Rotation 4- Good- Left Flexion (L2) 5 Normal Extension (S1) 5 Normal Abduction 5 Normal Adduction 5 Normal External Rotation 5 Normal Internal Rotation 5 Normal Knee Strength Knee Manual Muscle Testing Right Flexion (S2) 4- Good- Extension (L3) 4 Good Left Flexion (S2) 5 Normal Extension (L3) 5 Normal Ankle/Foot Strength Ankle and Foot Manual Muscle Testing Right Dorsiflexion (L4) 5 Normal Left Dorsiflexion (L4) 5 Normal PT-OP-Q Treatments Start: 11/01/22 18:02 Freq: Status: Active Protocol: Document 12/06/22 16:06 [facility] (Rec: 12/06/22 18:00 [facility] [id number]) Therapeutic Exercises Standing Exercises gait at wall Standing Exercise Name w/PT facilitation w/ant elevation on R Side bilateral Reps/Minutes 5 min spent total for varying holds and set up for position lunge Side bilateral Equipment Used hand on mat Reps/Minutes 6 ea squat Standing Exercise Name w/orange tband behind quad for tKE Side bilateral Reps/Minutes 10 Manual Therapy Treatment Soft Tissue Mobilization R leg Body Location R patellar tendon and lat quad & med calf Mobilization Type Rolling,Strumming,Sustained Pressure Intensity/Depth Moderate Joint Mobilizations ankle Joint R Comments AP distal tibia FM AP talus FM R knee Comments 1. PF sup, inf, med 2. tibfem-PA tibia & AP tibia FM; IR tibia FM 3. tibfib proximal distraction and PA FM PT-OP-T Assessment and Plan Start: 11/01/22 18:02 Freq: Status: Active Protocol: Document 12/06/22 16:06 [facility] (Rec: 12/06/22 18:00 [facility] [id number]) Physical Therapy Assessment Goals activities Short Term Goal (STG) Pt will be able to return to biking (on stationary bike- full range), ellipical full range and walks w/o inc pain in order to improve pt strength and stabiltiy. 11/24/22: almost met able perform full range but not fluid after last tx's Manual. Elliptical more normal and gait improving reported. 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 She is improvingw ell and was able to tolerate more WB activtities. Physical Therapy Plan Frequency and Duration Frequency of Treatment 1x/Week Duration of treatment (weeks) 12 Plan of Care Start Date 11/02/22 Plan of Care End Date 01/25/23 Next Visit Focus/Plan Next Note Type Treatment Note Next Visit Plan PNF to RLE to improve coordination of movement, Manual: circumfrential mobilization to femur and tibia, tibfib, tibfem mods very gentle, Patellofemoral mobs, STM to patellar tendon, plunger to ant knee
--- NOTE | 2022-12-14 17:57 | PT.OTN ---
Current Diagnoses Sprain of anterior cruciate ligament of right knee, subsequent encounter (12/14/22) Physical Therapy Treatment Note PT-OP-A Visit Information Start: 11/01/22 18:02 Freq: Status: Active Protocol: Document 12/14/22 16:50 [facility] (Rec: 12/14/22 17:57 [facility] [id number]) Out-Patient Physical Therapy Visit Information Visit Information Visit Type Treatment Note Visit Start Time 16:49 Visit Stop Time 17:35 Total Visit Minutes 46 Visit Number 5 Number of MAGAZINE WRITER Visits 0 PT-OP-B Current Condition Start: 11/01/22 18:02 Freq: Status: Active Protocol: Document 11/02/22 15:19 [facility] (Rec: 11/02/22 16:31 [facility] [id number]) Current Condition History of Current Condition History of Current Condition Pt had a skiing accdient and heard a snap in her knee. Her ski didn't pop off. This was Sep 08. Pt does a lot of modern dance. She was seeing PT for 3 weeks on [place] but is staying on [place] until Mar. Ortho MD did suggest surgery but she has a lot of manual labor like dismantle a garage and paint a house. Her house [place] is uneven ground everywhere and that is difficult. Pt has a dance performance on December 04. She idd perform about 1 month ago and improvised. She is avoiding leaping and spins. 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 Pt reports knee is not giving out on her recently but has done it on uneven ground. its been 1.5 months ago. She is careful how she moves though. Pt reports tearing R HS as a teen . Prior Treatments and Tests Got a MRI a few weeks ago saying:R knee near complete ruputre of ACL, Grade 2 MCL sprain, lat meniscal post horn tear, multifocal bone bruising and post rim impaction fx of the lat plateau, patellofemoral chrondromalacia, small knee effusion or hemarthrosis. Treatment Goals Patient/Caregiver Goals Be dancing more, be able to bend her knee & have ext, be able to be on unstable surfaces PT-OP-C Subjective Start: 11/01/22 18:02 Freq: Status: Active Protocol: Document 12/14/22 16:50 [facility] (Rec: 12/14/22 17:57 [facility] [id number]) OP-PT Subjective Patient Comments Patient Comments Pt reports doing a lot of outdoor work . Pt reports she has a question w/well exercise but hasn't gotten to do the exercise a ton. PT-OP-F Manual Assessment Start: 11/01/22 18:02 Freq: Status: Active Protocol: Document 11/02/22 15:19 [facility] (Rec: 11/02/22 16:31 [facility] [id number]) Manual Assessments Soft Tissue Assessment Soft Tissue Mobility Assessment significant tightness and restriction in HS, quad adn at patellar tendon; swelling most notable most knee Joint Mobility Assessment Joint Mobility Assessment dec fib mobility PT-OP-G Mobility & Gait Start: 11/01/22 18:02 Freq: Status: Active Protocol: Document 11/02/22 15:19 [facility] (Rec: 11/02/22 16:31 [facility] [id number]) OP Gait Assessment Comments Gait Comments dec push off into RLE. PT-OP-K Range of Motion Start: 11/01/22 18:02 Freq: Status: Active Protocol: Document 11/24/22 12:16 [facility] (Rec: 11/24/22 13:04 SP [id number]) Knee Goniometric Range of Motion Knee Right Knee ROM WFL Yes Patient Position Supine Flexion Active (degrees) 110 Flexion Passive (degrees) 113 Extension Active (degrees) 2 Comments R knee AROM: flex: 33 deg gained (110*) ext: 3 deg gained (2*) PT-OP-L Special Tests Start: 11/01/22 18:02 Freq: Status: Active Protocol: Document 11/02/22 15:19 [facility] (Rec: 11/02/22 16:31 [facility] [id number]) Special Tests Knee Special Tests Straight Leg Raise Comments L 104 R 95 Km Test Results quad tightness R PT-OP-M Strength Start: 11/01/22 18:02 Freq: Status: Active Protocol: Document 11/02/22 15:19 [facility] (Rec: 11/02/22 16:31 [facility] [id number]) Hip Strength Hip Manual Muscle Testing Right Flexion (L2) 4- Good- Extension (S1) 5 Normal Abduction 4 Good Adduction 4+ Good+ External Rotation 3+ Fair+ Internal Rotation 4- Good- Left Flexion (L2) 5 Normal Extension (S1) 5 Normal Abduction 5 Normal Adduction 5 Normal External Rotation 5 Normal Internal Rotation 5 Normal Knee Strength Knee Manual Muscle Testing Right Flexion (S2) 4- Good- Extension (L3) 4 Good Left Flexion (S2) 5 Normal Extension (L3) 5 Normal Ankle/Foot Strength Ankle and Foot Manual Muscle Testing Right Dorsiflexion (L4) 5 Normal Left Dorsiflexion (L4) 5 Normal PT-OP-Q Treatments Start: 11/01/22 18:02 Freq: Status: Active Protocol: Document 12/14/22 16:50 [facility] (Rec: 12/14/22 17:57 [facility] [id number]) Therapeutic Exercises Standing Exercises squats Standing Exercise Name 1.r eg 2. sumo Side bilateral Reps/Minutes 1. 2x8 2. 2x8 gait at wall Standing Exercise Name w/PT facilitation w/ant elevation on R Side bilateral Reps/Minutes 5 min spent total for varying holds and set up for position squat Standing Exercise Name w/orange tband behind quad for tKE Side bilateral Reps/Minutes 10 Manual Therapy Treatment Joint Mobilizations hip Joint R inf & ER hooklying FM innominate Joint R abd FM lumbar Joint L4 & 5 transverse L FM Neuro Re-Education Treatment Other Activities facilitation Comments R hip flex, add, ER prolonged hold supine PNF Details R Comments 1. ant elevation progressed to w/prolonged hold w/COI w/LE pattern PT-OP-T Assessment and Plan Start: 11/01/22 18:02 Freq: Status: Active Protocol: Document 12/14/22 16:50 [facility] (Rec: 12/14/22 17:57 [facility] [id number]) Physical Therapy Assessment Goals activities Short Term Goal (STG) Pt will be able to return to biking (on stationary bike- full range), ellipical full range and walks w/o inc pain in order to improve pt strength and stabiltiy. 11/24/22: almost met able perform full range but not fluid after last tx's Manual. Elliptical more normal and gait improving reported. STG Duration 12/02/22 almost met 11/24/22 Fci Goal (LTG) Pt will be able to squat down to the ground as need to cone picker objects and ffor movement requried of dance w/o inc pain LTG Duration 01/21/23 stairs Direct Support Professional Goal (LTG) pt will be able to reciprocate up/down stairs w/o compensations or R knee pain LTG Duration 01/25/23 ROm Short Term Goal (STG) Pt will improve ROM to 0-100 deg 11/24/22: STG Duration 12/13/22 Direct Support Professional Goal (LTG) Pt will have 0-120 deg AROM of R knee and at least 104 SLR active in order to improve pt ability to do stairs, and activities required of dancing LTG Duration 01/25/23 Assessment Summary Assessment Pt did well with ROM w/much improvement w/manual treatment to hip and pelvis w/ROM of knee. Improved from 106 deg flex to 116 deg. She Physical Therapy Plan Frequency and Duration Frequency of Treatment 1x/Week Duration of treatment (weeks) 12 Plan of Care Start Date 11/02/22 Plan of Care End Date 01/25/23 Next Visit Focus/Plan Next Note Type Treatment Note Next Visit Plan PNF to RLE to improve coordination of movement, Manual: circumfrential mobilization to femur and tibia, tibfib, tibfem mods very gentle, Patellofemoral mobs, STM to patellar tendon, plunger to ant knee
--- NOTE | 2023-01-06 14:51 | PT.OTN ---
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 Her ski didn't pop off. This was Sep 08. Pt does a lot of modern dance. She was seeing PT for 3 weeks on [place] but is staying on [place] until Mar. Ortho MD did suggest surgery but she has a lot of manual labor like dismantle a garage and paint a house. [place] uneven ground everywhere and that is difficult. Pt has a dance performance on December 04. She idd perform about 1 month ago and improvised. She is avoiding leaping and spins. 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 Pt reports knee is not giving out on her recently but has done it on uneven ground. its been 1.5 months ago. She is careful how she moves though. Pt reports tearing R HS as a teen . Prior Treatments and Tests Got a MRI a few weeks ago saying:R knee near complete ruputre of ACL, Grade 2 MCL sprain, lat meniscal post horn tear, multifocal bone bruising and post rim impaction fx of the lat plateau, patellofemoral chrondromalacia, small knee effusion or hemarthrosis. Treatment Goals Patient/Caregiver Goals Be dancing more, be able to bend her knee & have ext, be able to be on unstable surfaces PT-OP-C Subjective Start: 11/01/22 18:02 Freq: Status: Active Protocol: Document 01/06/23 13:34 [facility] (Rec: 01/06/23 14:48 [facility] [id number]) OP-PT Subjective Patient Comments Patient Comments Pt took down her garage and had a piece of wood over her elana and it tipped and she fell into the elana and twisted her knee. this was about 9 days ago. Pain inc and ROM limited since then. Saw another surgeon 2 days ago who she really liked. Feels like it is time for surgery. PT-OP-F Manual Assessment Start: 11/01/22 18:02 Freq: Status: Active Protocol: Document 11/02/22 15:19 [facility] (Rec: 11/02/22 16:31 [facility] [id number]) Manual Assessments Soft Tissue Assessment Soft Tissue Mobility Assessment significant tightness and restriction in HS, quad adn at patellar tendon; swelling most notable most knee Joint Mobility Assessment Joint Mobility Assessment dec fib mobility PT-OP-G Mobility & Gait Start: 11/01/22 18:02 Freq: Status: Active Protocol: Document 11/02/22 15:19 [facility] (Rec: 11/02/22 16:31 [facility] [id number]) OP Gait Assessment Comments Gait Comments dec push off into RLE. PT-OP-K Range of Motion Start: 11/01/22 18:02 Freq: Status: Active Protocol: Document 11/24/22 12:16 [facility] (Rec: 11/24/22 13:04 SP [id number]) Knee Goniometric Range of Motion Knee Right Knee ROM WFL Yes Patient Position Supine Flexion Active (degrees) 110 Flexion Passive (degrees) 113 Extension Active (degrees) 2 Comments R knee AROM: flex: 33 deg gained (110*) ext: 3 deg gained (2*) PT-OP-L Special Tests Start: 11/01/22 18:02 Freq: Status: Active Protocol: Document 11/02/22 15:19 [facility] (Rec: 11/02/22 16:31 [facility] [id number]) Special Tests Knee Special Tests Straight Leg Raise Comments L 104 R 95 Km Test Results quad tightness R PT-OP-M Strength Start: 11/01/22 18:02 Freq: Status: Active Protocol: Document 11/02/22 15:19 [facility] (Rec: 11/02/22 16:31 [facility] [id number]) Hip Strength Hip Manual Muscle Testing Right Flexion (L2) 4- Good- Extension (S1) 5 Normal Abduction 4 Good Adduction 4+ Good+ External Rotation 3+ Fair+ Internal Rotation 4- Good- Left Flexion (L2) 5 Normal Extension (S1) 5 Normal Abduction 5 Normal Adduction 5 Normal External Rotation 5 Normal Internal Rotation 5 Normal Knee Strength Knee Manual Muscle Testing Right Flexion (S2) 4- Good- Extension (L3) 4 Good Left Flexion (S2) 5 Normal Extension (L3) 5 Normal Ankle/Foot Strength Ankle and Foot Manual Muscle Testing Right Dorsiflexion (L4) 5 Normal Left Dorsiflexion (L4) 5 Normal PT-OP-Q Treatments Start: 11/01/22 18:02 Freq: Status: Active Protocol: Document 01/06/23 13:34 [facility] (Rec: 01/06/23 14:48 [facility] [id number]) Therapeutic Exercises Supine Exercises facilitation Supine Exercise Name R flex, add, ER Reps/Minutes 3 min Comments w/chop facilitation and chin tuck core Supine Exercise Name DL flex and cross isometric Side bilateral Reps/Minutes 30 sec ea Standing Exercises TKE Side right Equipment Used blue Reps/Minutes 10 squats Standing Exercise Name 1.reg 2. sumo Side bilateral Reps/Minutes 1. x8 2. 2x8 lunge Side bilateral Equipment Used hand on mat Reps/Minutes 10 Comments mirror for cues for position Manual Therapy Treatment Soft Tissue Mobilization R leg Body Location R adductor & lat quad FM Body Position Hooklying Comments w/ER FM Joint Mobilizations hip Joint R inf & ER hooklying FM innominate Joint R ER FM PT-OP-T Assessment and Plan Start: 11/01/22 18:02 Freq: Status: Active Protocol: Document 01/06/23 13:34 [facility] (Rec: 01/06/23 14:48 [facility] [id number]) Physical Therapy Assessment Goals activities Short Term Goal (STG) Pt will be able to return to biking (on stationary bike- full range), ellipical full range and walks w/o inc pain in order to improve pt strength and stabiltiy. 11/24/22: almost met able perform full range but not fluid after last tx's Manual. Elliptical more normal and gait improving reported. STG Duration some days pain w/walks especially after fall Half-Way Goal (LTG) Pt will be able to squat down to the ground as need to pickle sorter objects and ffor movement requried of dance w/o inc pain LTG Duration avoids stairs Half-Way Goal (LTG) pt will be able to reciprocate up/down stairs w/o compensations or R knee pain LTG Duration achieved ROm Short Term Goal (STG) Pt will improve ROM to 0-100 deg 11/24/22: STG Duration 3-109 Framing Mechanic Goal (LTG) Pt will have 0-120 deg AROM of R knee and at least 104 SLR active in order to improve pt ability to do stairs, and activities required of dancing LTG Duration improved 3-109 Assessment Summary Assessment Pt has overall improved w/ROM w/PT but does still have pain especially after a recent fall wher eshe twisted her knee more. she had a 2nd opinion and really like the surgeon and feels like now is a good time for surgery. Discussed w/ PT and at this time, it appears to be a good time for pt to DC to work w/surgeon. Pt indep w/HEP at this time so DC to HEP to cont to work on strength and ROM until surgery Physical Therapy Plan Discharge Physical Therapy Discharge Comments Going to get surgery
== END 2023-01-07 11:55 | disposition home or self-care (01) ==
LOC: PHYS 13:30
PROVIDERS: Family Provider Nurse Practitioner Family; PCP Nurse Practitioner Family; Referring Provider Nurse Practitioner Family; Visit Provider Nurse Practitioner Family
DX: S83.511D Sprain of anterior cruciate ligament of right knee, subsequent encounter (principal)
CPT/HCPCS: 97110; 97112; 97140; 97162

== ENCOUNTER → 2024-11-14 16:53 | Outpatient (CLI) | payer OTHER, SELFPAY ==
--- NOTE | 2024-11-14 16:54 | DI.MG.S_ITS ---
MM screening mammo BI: 11/14/2024. BI-RADS: 2 CLINICAL: 49-year old female for bilateral screening mammogram. Tyrer-Cuzick lifetime risk of 18.5%. No personal or first-degree family history of breast cancer. Current reported family history of breast cancer: maternal grandmother and paternal grandmother. The patient had a prior right breast biopsy. PRIOR EXAMS 10/26/2022, 10/11/2022, 08/24/2022. MAMMOGRAPHY TECHNIQUE: 2D and 3D (tomosynthesis) digital mammographic views obtained, with additional images as needed for full coverage. Current study was also evaluated with a Computer Aided Detection (CAD) system. DENSITY D. The breasts are extremely dense, which lowers the sensitivity of mammography. MAMMOGRAPHY FINDINGS Right: Biopsy marker present on the right. There are no suspicious masses, calcifications, or other findings in the breast. Left: No suspicious mass, asymmetry, microcalcification, or other abnormality seen. IMPRESSION: Right * No evidence of malignancy with benign findings. Left * No evidence of malignancy. RECOMMENDATIONS Bilateral * Annual screening mammography. OVERALL ASSESSMENT CATEGORY BI-RADS-2: Benign. The [employer] recommends annual screening mammography beginning at age 40 for women with average risk of breast cancer. ELECTRONICALLY SIGNED: Nichole Cook M.D. on 11/15/2024 at 05:34:17 PM PT Interpreting Station ID: [id number]
== END ==
PROVIDERS: Family Provider Nurse Practitioner Family; PCP Nurse Practitioner Family; Referring Provider Nurse Practitioner Family; Visit Provider Nurse Practitioner Family
DX: Z12.31 Encounter for screening mammogram for malignant neoplasm of breast (principal); R92.343 Mammographic extreme density, bilateral breasts
CPT/HCPCS: 77063; 77067